=== PATIENT | male | born 1970 | race Caucasian/White ===

== ENCOUNTER 2017-02-12 14:26 | Emergency (ER) | payer BC, OTHER ==
[~2017-02-12] VITALS: Ht 172.7 cm; Wt 86.5 kg
[2017-02-12 14:28] VITALS: TEMP 36.7; Ht 172.7 cm; Wt 86.5 kg
[2017-02-12] MEDS ORDERED: SODIUM CHLORIDE 0.9% 1000ML 1,000 ML IV STA (14:40)
[2017-02-12] MEDS ORDERED: SODIUM CHLORIDE 0.9% 1000ML 1,000 ML IV ONE (14:40)
[2017-02-12 15:02] LABS: BASO % 0.3 %; BASO ABS # 0.02 K/uL (0-0.2); COMPLETE YES; EOS % 0.3 %; HEMATOCRIT 46.3 % (42-52); IG% 0.1 %; LYMPH % 18.3 %; LYMPH ABS # 1.28 K/uL (1.2-3.4); MEAN CELL VOLUME 91.3 fL (80-100); MEAN PLATELET VOLUME 9.3 fL (7.4-10.4); PLATELET COUNT 238 K/uL (130-400); RED BLOOD COUNT 5.07 M/uL (4.7-6.1); WHITE BLOOD COUNT 6.99 K/uL (4.8-10.8)
--- NOTE | 2017-02-12 15:05 | EMERGENCY ROOM VISIT NOTE ---
History Report prepared by Tylor: Rean Ramirez Under the Supervision of: Dr. Stephen Scanlon M.D. First contact with patient: 14:32 Chief Complaint: ABDOMINAL PAIN Stated Complaint: ABD PAIN Nursing Triage Summary: Triage note: Pt for the past several days mid abd pain. pt was seen at [facility] and sent to ed for further eval. pt denies any at this time. "it feels like something is scraping insides and it ward." History of Present Illness The patient is a 46 year old male who presents to the Emergency Room with complaints of intermittent RUQ abdominal pain for the past 3 days. His pain is worse when he hasn't eaten for a long time. It lasts for about 30 seconds at a time and resolves on its own with time. He describes his pain as a "burning" sensation and rates it as a 2/10 in severity. He initially thought that this was acid reflux. He occasionally feels short of breath when experiencing an episode of pain. His pain is not worse with breathing. The patient denies chest pain, cough, black or bloody stools, urinary symptoms, testicle pain, groin pain , pain or swelling in the legs, and any recent trauma or injury to his abdomen. He was evaluated at [facility] today and was sent to the ED for further evaluation of his symptoms. He injured his back a couple of weeks ago while carrying wood. He was not evaluated by a physician after the incident and just thought that he pulled a muscle in his back. The patient states that he has been using "a lot of Aleve" for his back pain over the past couple of weeks. He has not been taking any Tylenol. Source of History: patient Onset: 3 days ago Position: abdomen (RUQ) Symptom Intensity: 2/10 Quality: burning Timing: intermittent Modifying Factors (Worsening): other (not eating for a long period of time) Modifying Factors (Relieving): other (time) Associated Symptoms: + SOB, No chest pain, No cough, No hematochezia, No melena, No urinary symptoms Note: Pt denies testicle pain, groin pain, pain or swelling in the legs, and any recent trauma or injury to his abdomen Review of Systems See HPI for pertinent positives & negatives. A total of 10 systems reviewed and were otherwise negative. Past Medical & Surgical Medical Problems: (1) Acid reflux -Old medical records were reviewed. Nurse's notes were reviewed and I agree with. No history of diabetes or cardiac disease. Family History No pertinent history stated. Social History Smoking Status: Never Smoker Marital Status: Housing Status: lives with significant other Occupation Status: employed Current/Historical Medications No Active Prescriptions or Reported Meds Allergies Coded Allergies: No Known Allergies (Unverified , 02/12/17) Physical Exam Vital Signs Date Time Temp Pulse Resp B/P Pulse Ox O2 Delivery O2 Flow Rate FiO2 02/12/17 18:30 78 146/82 97 02/12/17 17:00 78 15 144/94 Room Air 02/12/17 15:28 71 02/12/17 14:28 36.7 79 18 148/96 98 Room Air Physical Exam General: Well developed well nourished non-ill appearing middle-aged male in no acute distress, breathing comfortably on room air. Normal speech HEENT: Normal cephalic atraumatic. Pupils are equal round and reactive to light. Extraocular movements are intact. Oropharynx is pink with moist mucous membranes. No swelling of the mouth lips or tongue. Neck: Supple with a midline trachea. No meningeal signs or stiffness, no JVD or bruits. No Stridor. Chest: Clear to auscultation bilaterally. No wheezes or rhonchi. No increased work of breathing. Heart: regular rate and rhythm. Abdomen: Soft mildly tender in the RUQ, nondistended without rebound guarding or rigidity. Extremities: No cyanosis clubbing or edema. No calf tenderness or assymetry Spine/Back. Non tender to palpation. No CVA tenderness Skin: Good turgor without rashes. Neurologic exam: Cranial nerves two through 12 are intact. Motor and sensation are intact and symmetrical throughout. Medical Decision & Procedures ER Provider Diagnostic Interpretation: Radiology results as stated below per my review and radiologist interpretation: CHEST ONE VIEW PORTABLE CLINICAL HISTORY: Chest and abdominal pain. COMPARISON STUDY: No previous studies for comparison. FINDINGS: Lung volumes are normal. There is no pneumothorax or pleural effusion. Cardiac size is normal. Mediastinal contours are normal. There is no evidence of pulmonary edema. IMPRESSION: No acute cardiopulmonary findings. Electronically signed by: Faisal Jackson M.D. 02/12/2017 3:05 PM Dictated Date/Time: 02/12/2017 3:05 PM ABDOMINAL ULTRASOUND, RIGHT UPPER QUADRANT HISTORY: Right upper quadrant abdominal pain.. COMPARISON: None. FINDINGS: Pancreas: Obscured by overlying bowel gas. Liver: Unremarkable. Gallbladder: No gallbladder wall thickening. No gallstones. CBD: 3 mm. Right kidney: No hydronephrosis. IMPRESSION: 1. Normal gallbladder. No gallstones. 2. The pancreas was obscured by overlying bowel gas. Electronically signed by: Cholo Magallon M.D. 02/12/2017 5:34 PM Dictated Date/Time: 02/12/2017 5:33 PM Laboratory Results 02/12/17 14:50 Red Blood Count 5.07, Mean Corpuscular Volume 91.3, Mean Corpuscular Hemoglobin 32.0, Mean Corpuscular Hemoglobin Concent 35.0, Mean Platelet Volume 9.3, Neutrophils (%) (Auto) 71.0, Lymphocytes (%) (Auto) 18.3, Monocytes (%) (Auto) 10.0, Eosinophils (%) (Auto) 0.3, Basophils (%) (Auto) 0.3, Neutrophils # (Auto ) 4.96, Lymphocytes # (Auto) 1.28, Monocytes # (Auto) 0.70, Eosinophils # (Auto ) 0.02, Basophils # (Auto) 0.02 02/12/17 14:50 Test 02/12/17 14:30 02/12/17 14:50 02/12/17 14:56 Urine Color YELLOW Urine Appearance CLOUDY (CLEAR) Urine pH 5.5 (4.5-7.5) Urine Specific [place] 1.030 (1.000-1.030) Urine Protein NEG (NEG) Urine Glucose (UA) NEG (NEG) Urine Ketones TRACE (NEG) Urine Occult Blood TRACE (NEG) Urine Nitrite NEG (NEG) Urine Bilirubin NEG (NEG) Urine Urobilinogen NEG (NEG) Urine Leukocyte Esterase NEG (NEG) Urine WBC (Auto) 1-5 /hpf (0-5) Urine RBC (Auto) 0-4 /hpf (0-4) Urine Hyaline Casts (Auto) 1-5 /lpf (0-5) Urine Epithelial Cells (Auto) 0-5 /lpf (0-5) Urine Bacteria (Auto) NEG (NEG) White Blood Count 6.99 K/uL (4.8-10.8) Red Blood Count 5.07 M/uL (4.7-6.1) Hemoglobin 16.2 g/dL (14.0-18.0) Hematocrit 46.3 % (42-52) Mean Corpuscular Volume 91.3 fL (80-100) Mean Corpuscular Hemoglobin 32.0 pg (25-34) Mean Corpuscular Hemoglobin Concent 35.0 g/dl (32-36) Platelet Count 238 K/uL (130-400) Mean Platelet Volume 9.3 fL (7.4-10.4) Neutrophils (%) (Auto) 71.0 % Lymphocytes (%) (Auto) 18.3 % Monocytes (%) (Auto) 10.0 % Eosinophils (%) (Auto) 0.3 % Basophils (%) (Auto) 0.3 % Neutrophils # (Auto) 4.96 K/uL (1.4-6.5) Lymphocytes # (Auto) 1.28 K/uL (1.2-3.4) Monocytes # (Auto) 0.70 K/uL (0.11-0.59) Eosinophils # (Auto) 0.02 K/uL (0-0.5) Basophils # (Auto) 0.02 K/uL (0-0.2) RDW Standard Deviation 43.5 fL (36.4-46.3) RDW Coefficient of Variation 13.1 % (11.5-14.5) Immature Granulocyte % (Auto) 0.1 % Immature Granulocyte # (Auto) 0.01 K/uL (0.00-0.02) Anion Gap 8.0 mmol/L (3-11) Est Creatinine Clear Calc Drug Dose 96.6 ml/min Estimated GFR () 102.7 Estimated GFR (Non- 88.6 BUN/Creatinine Ratio 22.1 (10-20) Calcium Level 8.9 mg/dl (8.5-10.1) Total Bilirubin 0.7 mg/dl (0.2-1) Direct Bilirubin 0.2 mg/dl (0-0.2) Aspartate Amino Transf (AST/SGOT) 11 U/L (15-37) Alanine Aminotransferase (ALT/SGPT) 19 U/L (12-78) Alkaline Phosphatase 51 U/L (45-117) Total Protein 8.5 gm/dl (6.4-8.2) Albumin 3.8 gm/dl (3.4-5.0) Lipase 135 U/L (73-393) Bedside Troponin I 0.000 ng/ml (0-0.045) Laboratory studies as stated above per my review. Medications Administered Medications (Trade) Dose Ordered Sig/Nikky Route Start Time Stop Time Status Last Admin Dose Admin Sodium Chloride 1,000 ml @ 999 mls/hr Q1H1M STAT IV 02/12/17 14:40 02/12/17 15:40 DC 02/12/17 15:05 999 MLS/HR Sodium Chloride (Nss 1000ml) 1,000 ml @ 200 mls/hr Q5H ONCE IV 02/12/17 14:40 02/12/17 18:53 DC 02/12/17 15:05 200 MLS/HR ECG Indication: abdominal pain Rate (beats per minute): 73 Rhythm: sinus with SA Findings: no acute ischemic change, no ectopy Comparison ECG Date: no prior available ED Course 1432: Past medical records reviewed. The patient was evaluated in room B7, and a complete history and physical examination were performed. 1440: NSS 1000 ml @ 200 mls/hr IV, NSS 1000 ml @ 999 mls/hr IV 1518: I reassessed the patient at this time. He is doing well. 1618: I reevaluated the patient and he is resting comfortably. I updated his . The patient is waiting to go to ultrasound. 1817: I reassessed the patient at this time. He is feeling better and resting comfortably. I discussed the results and treatment plan with the patient. I answered all pertaining questions that he had. He expressed understanding and verbalized agreement. The patient will be discharged home. Medical Decision Differential diagnoses includes gallbladder disease, peptic ulcer disease, gastritis, cardiac disease, pulmonary disease, electrolyte or metabolic abnormality. This patient comes in as described above he's had sharp intermittent abdominal pain most in the right upper abdomen. He is mildly tender on palpation. Multiple blood tests was obtained. EKG and chest x-ray is obtained. Chest x- ray does not suggest congestive heart failure, pneumonia , or pneumothorax. EKG does not suggest acute coronary syndrome or significant arrhythmia. He has no white count or fever to suggest infection. He is not anemic. He has no significant electrolyte or metabolic abnormalities. He has nothing to suggest liver or gallbladder or pancreas disease. A gallbladder ultrasound was obtained. He was hydrated with IV normal saline. Ultrasound was unremarkable. The patient is feeling better. I suspect this is related to his stomach and it may be related to the fact that he's been taking a fair amount of NSAIDs due to back pain. He was told to minimize NSAID use. He is use [id number] medication for stomach including either Zantac or Pepcid. Return if: increasing pain, worsening of symptoms, fever or chills, any new problems or concerns. Impression Primary Impression: Epigastric abdominal pain Scribe Attestation The scribe's documentation has been prepared under my direction and personally reviewed by me in its entirety. I confirm that the note above accurately reflects all work, treatment, procedures, and medical decision making performed by me. Departure Information Dispostion Home / Self-Care Prescriptions No Active Prescriptions or Reported Meds Referrals No Doctor, Assigned (PCP) Forms Call Back Authorization, HOME CARE DOCUMENTATION FORM, IMPORTANT VISIT INFORMATION Patient Instructions My [facility] Additional Instructions Rest. Mild diet. Minimize your usage of NSAIDs May use [id number] Zantac or Pepcid Return if: Increasing pain, fever or chills, worsening of symptoms, any new problems or concerns.
[2017-02-12 15:12] LABS: MANUAL MICROSCOPIC REQUIRED? NO; REVIEW REQ? NO; URINE APPEARANCE CLOUDY (CLEAR); URINE BILIRUBIN NEG (NEG); URINE COLOR YELLOW; URINE EPITHELIAL CELL AUTO 0-5 /lpf (0-5); URINE NITRITE NEG (NEG); URINE PH 5.5 (4.5-7.5); UROBILINOGEN NEG (NEG)
[2017-02-12 15:20] LABS: BUN/CREATININE RATIO 22.1 (10-20); CALCIUM 8.9 mg/dl (8.5-10.1); POTASSIUM 3.9 mmol/L (3.5-5.1)
--- NOTE | 2017-02-12 17:37 | DIAGNOSTIC IMAGING REPORT ---
ABDOMINAL ULTRASOUND, RIGHT UPPER QUADRANT HISTORY: Right upper quadrant abdominal pain.. COMPARISON: None. FINDINGS: Pancreas: Obscured by overlying bowel gas. Liver: Unremarkable. Gallbladder: No gallbladder wall thickening. No gallstones. CBD: 3 mm. Right kidney: No hydronephrosis. IMPRESSION: 1. Normal gallbladder. No gallstones. 2. The pancreas was obscured by overlying bowel gas. Electronically signed by: Cholo Magallon M.D. 02/12/2017 5:34 PM Dictated Date/Time: 02/12/2017 5:33 PM
[2017-02-12 18:30] VITALS: BP 146/82; PULSE 78; O2SAT 97
== END 2017-02-12 18:30 | disposition home or self-care (01) ==
LOC: C.EDB 14:28
DX: R10.13 Epigastric pain (principal); R10.11 Right upper quadrant pain